=== PATIENT | male | born 1950 | race Caucasian/White ===

== ENCOUNTER → 2021-02-13 07:17 | Outpatient (CLI) | payer MEDICARE, SELFPAY ==
--- NOTE | ~2021-02-13 | MR_ITS ---
EXAMINATION: MR knee RT wo con DATE: 02/13/2021 08:11 INDICATION: Chronic right knee pain TECHNIQUE: Magnetic resonance imaging (MRI) of the right knee was performed without intravenous contr ast. Sequences included coronal PD-weighted FSE, coronal PD-weighted FS FSE, sagittal T2-weighted FS E, sagittal PD-weighted FS FSE and axial PD weighted fat saturated FSE. COMPARISON: Right knee radiographs dated 03/31/2016 FINDINGS: Medial compartment: There is a longitudinal horizontal tear extending to the inferior articular surface and the posterior horn and posterior body of the medial meniscus. The body of the medial meniscus is smaller than expe cted with more amorphous increased signal suggesting secondary degeneration. There is deep chondral u lceration with subarticular edema and cystic change along the medial and anteromedial aspect of the m edial tibial plateau vessels at the central weightbearing medial femoral condyle. Less severe partial thickness cartilage loss with mild chondral surface regularity and without degenerative subchondral changes at the anterior weightbearing medial femoral condyle. Lateral compartment: Lateral meniscus is normal. Articular cartilage is normal. Patellofemoral compartment: Extensive full/near full-thickness cartilage loss with underlying subarticular edema and cystic sarabia e throughout the lateral patellar facet and at the apical ridge as well as along significant portions of the juxtaposed mid to cephalad lateral trochlea. Mild partial-thickness cartilage loss with brandon h chondral surface and without degenerative subchondral changes at the medial side of the patellofemo ral articulation. Ligaments and tendons: Anterior and posterior cruciate ligaments are normal. The medial collateral ligament and fibular kiya ateral ligament complex are normal. Mild patellar and quadriceps tendinopathy without tear. The visua lized medial and lateral hamstring tendons as well as the iliotibial band are normal. Fluid: Physiologic amount of fluid in the joint space. Prominent loose osteochondral bodies measuring 14 x 1 3 x 15 mm at the suprapatellar pouch and 17 x 13 x 7 mm in the recess posterior to the posterior cruc iate ligament. Osseous/other: No fracture. 10 x 10 x 6 mm T2 hyperintense lesion with cluster of grape like appearance with lobular margins location and appearance most consistent with an enchondroma. Other pathologic marrow replaci ng process. IMPRESSION: 1. Medial meniscal tear. 2. 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 3. Mild quadriceps and patellar tendinopathy. 4. Large loose osteochondral bodies at the posterior recess of the suprapatellar pouch. Reviewed, dictated and finalized at location A. IMPRESSION: 1. Medial meniscal tear. 2. Moderate osteoarthritis with extensive moderate and high-grade chondromalaci a in the medial and patellofemoral compartments. 3. Mild quadriceps and patellar tendinopathy. 4. Large loose osteochondral bodies at the posterior recess of the suprapatella r pouch.
== END ==
PROVIDERS: PCP Family Medicine; Visit Provider Orthopaedic Surgery
DX: S83.241A Other tear of medial meniscus, current injury, right knee, initial encounter (principal); M17.12 Unilateral primary osteoarthritis, left knee; M23.42 Loose body in knee, left knee
CPT/HCPCS: 73721